=== PATIENT | female | born 1965 | race Caucasian/White ===

== ENCOUNTER 2016-09-29 13:14 | Inpatient (IN) | payer MEDICARE, MEDICAID ==
[~2016-09-29] VITALS: Ht 162.6 cm; Wt 75.5 kg
--- NOTE | ~2016-09-29 | HEMODYNAMI ---
PATIENT:BENJI SCHROEDER MEDICAL RECORD: [id number] : 69 LOCATION[id number] ADMISSION DATE: 09/29/16 Generatedon:09/30/201610:20 Patient name: BENJI SCHROEDER Patient #: [id number] SSN: [id number] : 1965 Date of study: 09/30/2016 Page: Of Hemodynamic Procedure Report Patient Data Patient Demographics Procedure consent was obtained First Name: BENJI Gender: Female Last Name: ALEXANDRE : 1965 [facility] Initial: MAIN Age: 51 year(s) Patient #: [id number] Race: SSN: [id number] Additional ID: [id number] Contact details Address: [address] [place] [address] rd State: [place] City: [facility] Zip code: [address] Past Medical History Allergies Allergen Reaction Date Comments Reported Bee/Wasp stings 09/30/2016 Admission Admission Data Admission Date: 09/29/2016 Admission Time: 13:14 Arrival Date: 09/29/2016 Arrival Time: 13:14 Admit Source: Other Insurance Payor: Medicare Room #: D.2115 Lab Results Lab Result Date: 09/30/2016 Lab Result Time: 0:00 Biochemistry Name Units Result Min Max BUN mg/dl 12 --(-*--)-- 7 18 Creatinine mg/dl 0.8 --(-*--)-- 0.6 1.3 CBC Name Units Result Min Max Hemoglobin g/dl 13.4 -*(----)-- 13.5 17.5 Procedure Procedure Types Cath Procedure Diagnostic Procedure LHC LHC w/Coronaries Procedure Description Procedure Date Procedure Date: 09/30/2016 Procedure Start Time: 10:09 Procedure End Time: 10:19 Procedure Staff Name Function Lloyd Adair MD Performing Physician Olivia Madrigal RT Scrub Christopher Lundberg RN Nurse Desire Reyes RT Monitor Indication Angina Procedure Data Cath Procedure Fluoroscopy Diagnostic fluoroscopy Total fluoroscopy Time: 1.1 time: 1.1 min min Diagnostic fluoroscopy Total fluoroscopy dose: 195 dose: 195 mGy mGy Contrast Material Contrast Material Type Amount (ml) Isovue 300 37 Entry Location Entry Primary Successful Side Size Upsize Upsize Entry Closure Succes sful Closure Location (Fr) 1 (Fr) 2 (Fr) Remarks Device Remarks Femoral Right 5 Fr Vascade artery Closure System Estimated blood loss: 5 ml Diagnostic catheters Device Type Used For End Catheter Placement Cordis 5Fr Pigtail LV Angiography Catheter (MP) Cordis 5Fr JL 4.0 Left Coronary Catheter (MP) Angiography Cordis 5Fr 3DRC Catheter Right Coronary (MP) Angiography Procedure Complications No complications Procedure Medications Medication Administration Route Dosage Oxygen NC 2 l/min Plavix P.O. 75 mg Heparin Flush Bag added to field 2 bags (1000units/500ml NS) 0.9% NaCl I.V. ml/hr Fentanyl I.V. 50 mcg Versed I.V. 1 mg Fentanyl I.V. 50 mcg Versed I.V. 1 mg Hemodynamics Rest HGB: 13.4 (g/dl) Heart Rate: 64 (bpm) Snapshots Pre Cath Intra NCS Post Cath Vital Signs Time Heart Resp SPO2 NIBP Rhythm Pain Sedation Rate (ipm) (%) (mmHg) Status Level (bpm) 9:57:22 52 19 91 100/71(84) NSR 0 (11) 10(A) , No pain 10:01:25 51 20 94 103/62(74) NSR 0 (11) 10(A) , No pain 10:05:31 49 19 94 97/62(76) NSR 0 (11) 10(A) , No pain 10:09:33 48 17 94 96/63(74) NSR 0 (11) 10(A) , No pain 10:13:34 55 16 95 92/62(77) NSR 0 (11) 9(A) , No pain 10:16:41 57 19 94 96/63(74) NSR 0 (11) 9(A) , No pain Medications Time Medication Route Dose Verified Delivered Reason Notes Ef fectiveness by by 9:57:54 Oxygen NC 2 Christopher White Per l/min Toño Lundberg RN physician RN 10:00:00 Plavix P.O. 75 mg Christopher Lundberg Lundberg RN antiplatelet RN therapy 10:00:12 Heparin Flush added 2 Christopher hWite used for Bag to bags Toño Lundberg RN procedure (1000units/500ml field RN NS) 10:00:41 0.9% NaCl I.V. ml/hr Christopher Christopher Per Toño Lundberg RN physician RN 10:06:51 Fentanyl I.V. 50 Christopher Christopher for sedation mcg Toño Lundberg RN RN 10:06:59 Versed I.V. 1 mg Christopher Christopher for sedation Toño Lundberg RN RN 10:09:49 Fentanyl I.V. 50 Christopher Christopher for sedation mcg Toño Lundberg RN RN 10:09:52 Versed I.V. 1 mg Christopher Christopher for sedation Toño Lundberg RN treatment coordinator Log Time Note 9:30:41 Christopher Lundberg RN sent for patient. Start room use. 9:42:41 Time tracking: Call back 9:42:45 Plan of Care:Hemodynamics will remain stable., Cardiac rhythm will remain stable., Comfort level will be maintained., Respiratory function will remain adequate., Patient/ family verbilizes understanding of procedure., Procedure tolerated without complication., Recovers from procedure without complications.. 9:44:13 Diagnostic Cath Status : Elective 9:44:22 Indication : Angina 9:44:42 Informed consent obtained and on chart 9:45:21 Arrival Date: 09/29/2016 1:14:00 PM 9:45:27 Admit Source: Other 9:45:29 Insurance Payor : Medicare 9:47:34 Lab Result : Hemoglobin 13.4 g/dl 9:47:34 Lab Result : Creatinine 0.8 mg/dl 9:47:34 Lab Result : BUN 12 mg/dl 9:48:04 Patient received from Med II to CCL 1 Alert and oriented. Tansferred to table in Supine position. 9:48:08 Warm blankets applied, and zuri hugger turned on for patient comfort. 9:48:08 Correct patient and procedure confirmed by team. 9:48:09 ECG and BP/O2 sat monitors applied to patient. 9:56:15 Vital chart was started 9:56:18 Rhythm: sinus rhythm 9:56:19 Full Disclosure recording started 9:57:00 H&P Date Dictated: 09/29/2016 Within 30 days and on chart.. 9:57:01 Pre-procedure instructions explained to patient. 9:57:02 Pre-op teaching completed and patient verbalized understanding. 9:57:03 Family unavailable. 9:57:19 Patient NPO since Midnight. 9:57:23 Patient allergic to Bee/Wasp stings 9:57:25 Is the patient allergic to Iodine/contrast media? No. 9:57:27 Is patient on blood thinner?Yes 9:57:29 ACC The patient was administered the following blood thiners within the last 24 hours: ACCPlavix 9:57:32 Patient diabetic? No. 9:57:54 Oxygen 2 l/min NC was given by Christopher Lundberg RN; Per physician; 9:58:04 Previous problem with sedation/anesthesia? No ? 9:58:04 Snore? Yes 9:58:05 Sleep apnea? No 9:58:06 Deviated septum? No 9:58:07 Opens mouth fully? Yes 9:58:08 Sticks out tongue? Yes 9:58:10 Airway obstruction? Yes COPD 9:58:14 Dentures? Yes Out 9:58:17 Pre procedure: right dorsailis pedis pulse 2+ Normal; easily identifiable; not easily obliterated 9:58:18 Modified Dalton's test Ulnar > 7 seconds. 9:58:20 Patient pain scale 0/10 ?. 9:58:27 IV patent on arrival in left hand with 0.9% NaCl at KVO. 9:58:32 Lab results completed and on chart. 9:58:35 Right groin area was prepped with chlora-prep and draped in sterile fashion 9:58:36 Alarms reviewed by R. N. 9:58:36 Sharps counted by scrub and verified by R.N. 9:58:42 Use device set Femoral Dx 9:58:43 Acist Syringe opened to sterile field. 9:58:43 Bag Decanter opened to sterile field. 9:58:43 Cardinal Cath Pack opened to sterile field. 9:58:44 Terumo 5Fr Riparius Sheath opened to sterile field. 9:58:44 St Liang 260cm J .035 wire opened to sterile field. 9:58:45 Acist Hand Control opened to sterile field. 9:58:45 Acist Manifold opened to sterile field. 9:58:46 Cordis Infinity 5Fr Multipack catheter opened to sterile field. 9:58:46 Tegaderm 4 x 4 opened to sterile field. 9:58:47 IV Extension Set opened to sterile field. 9:58:55 Baseline sample Acquired. 10:00:00 Plavix 75 mg P.O. was given by Christopher Lundberg RN; for antiplatelet therapy; 10:00:12 Heparin Flush Bag (1000units/500ml NS) 2 bags added to field was given by Christopher Lundberg RN; used for procedure; 10:00:41 0.9% NaCl ml/hr I.V. was given by Christopher Lundberg RN; Per physician; 10:01:17 Physician paged 10:05:06 Zero performed for pressure channel P1 10:06:23 Final Timeout: patient, procedure, and site verified with staff and physician. All members of the team are in agreement. 10:06:26 Right groin site verified by team. 10:06:30 Physical assessment completed. ASA score P 2 - A patient with mild systemic disease as per Lloyd Adair MD. 10:06:33 Sedation plan: IV Moderate Sedation Versed, Fentanyl 10:06:51 Fentanyl 50 mcg I.V. was given by Christopher Lundberg RN; for sedation; 10:06:59 Versed 1 mg I.V. was given by Christopher Lundberg RN; for sedation; 10:09:43 Procedure started. 10:09:46 Local anesthetic to right femoral artery with Lidocaine 2% by Lloyd Adair MD.INITIAL ACCESS ONLY 10:09:49 Fentanyl 50 mcg I.V. was given by Christopher Lundberg RN; for sedation; 10:09:52 Versed 1 mg I.V. was given by Christopher Lundberg RN; for sedation; 10:10:30 A 5 Fr sheath was inserted into the Right Femoral artery 10:10:44 A Cordis 5Fr Pigtail Catheter (MP) was advanced over the wire and used for LV Angiography. 10:11:21 LV gram done using ROMAN 10:11:26 Injector settings: Ml/sec: 5, Volume: 15, 10:11:34 EF : 55 % 10:11:36 Catheter removed. 10:11:45 A Cordis 5Fr JL 4.0 Catheter (MP) was advanced over the wire and used for Left Coronary Angiography. 10:12:37 Catheter removed. 10:12:56 A Cordis 5Fr 3DRC Catheter (MP) was advanced over the wire and used for Right Coronary Angiography. 10:13:29 Catheter removed. 10:13:35 Vascade 5Fr Closure Device opened to sterile field. 10:13:47 Sheath removed intact; hemostasis achieved with Vascade Closure System to the Right Femoral artery. 10:13:49 Procedure ended.(Physican Out) 10:13:58 Fluoroscopy time 01.10 minutes. 10:14:03 Fluoroscopy dose: 195 mGy 10:14:03 Flurop Dose total: 195 10:14:42 Contrast amount:Isovue 300 37ml. 10:14:43 Sharps counted by scrub and verified by R.N. 10:14:44 Insertion/operative site no bleeding no hematoma. 10:14:44 Insertion/operative site no bleeding no hematoma. 10:14:47 Post-op/insertion site Right Femoral artery dressed using a 4 x 4 and Tegaderm. 10:14:50 Post right femoral artery:stable, clean and dry 10:14:51 Post Procedure Pulses reassessed and unchanged 10:14:53 Post-procedure physical assessment completed. ASA score P 2 - A patient with mild systemic disease as per Lloyd Adair MD. 10:14:55 Post procedure rhythm: unchanged. 10:14:57 Estimated blood loss: 5 ml 10:14:58 Post procedure instruction explained to patient.Patient verbalizes understanding. 10:14:58 Patient needs reinforcement of post procedure teaching. 10:15:05 Procedure Complication : No complications 10:15:07 See physician's report for complete and final results. 10:16:33 Procedure and supply charges have been captured, reviewed, submitted and are correct. 10:19:39 Vital chart was stopped 10:19:42 Report given to PCU. 10:19:45 Patient transfered to PCU with Bed. 10:19:47 Procedure ended. 10:19:47 Full Disclosure recording stopped 10:19:52 End room use (Document Last) Device Usage Item Name Manufacture Quantity Catalog Number Hospital Part Current Minimal Lot# / Charge Number Stock Stock Serial# Code [facility] [id number] 535451 425165 769155 20 myJambi Inc Bag Microtek 1 438492 14995 251722 5 Decanter Medical Inc. Cardinal Cardinal 1 [id number] 533157 97335 545560 5 Cath Pack Health Terumo Terumo 1 [id number] 135565 784123 750923 [address] St Liang 1 216960 006557 974916 116001 30 260cm J .035 wire Acist Acist 1 83791 697056 046858 135131 5 Hand Medical Control Systems Inc Acist Acist 1 46694 767392 430140 548573 5 Manifold Medical Systems Inc Cordis Cardinal 1 [id number] 481409 85924 903655 30 Infinity Health 5Fr Multipack catheter Tegaderm 3M 1 [id number] 449390 299063 447869 5 4 x 4 IV Hospira 1 57799-08 493122 84736 446858 5 Extension Set Cordis Cardinal 1 525692 5 5Fr Health Pigtail Catheter (MP) Cordis Cardinal 1 [id number] 5 5Fr JL Health 4.0 Catheter (MP) Cordis Cardinal 1 852542 5 5Fr 3DRC Health Catheter (MP) Vascade Cardiva 1 [id number] 588109 90349 560074 10 5Fr Medical, Closure Inc. Device Signature Audit [place] Stage Time Signature Unsigned Intra-Procedure 09/30/2016 Desire 10:20:33 AM Counts RT(R) Signatures Monitor : Desire Signature : Counts RT Date : Time : [facility] [address] [place] [address]
[~2016-09-29 13:14] MED LIST: DETROL LA4 MG PO; MOBIC7.5 MG PO; NICODERM C1 PATCH .1 TD
[2016-09-29] MEDS ORDERED: VESICARE10 MG PO (13:51)
[2016-09-29] MEDS ORDERED: ALENDRONATE SOD70 MG PO (13:51)
[2016-09-29] MEDS ORDERED: CELEXA20 MG PO (13:55)
[2016-09-29] MEDS ORDERED: GLUCOSAMINE & C1 CAP PO (13:57)
[2016-09-29 14:10] VITALS: BP 125/87; Ht 162.6 cm; Wt 75.5 kg
[2016-09-29 15:40] LABS: BASOPHILS 0.2 % (0.0-2.0); EOSINOPHILS 0.7 % (0-7); HEMATOCRIT 41.7 % (36.0-48.0); HEMOGLOBIN 13.4 g/dL (12-16); IMMATURE GRANULOCYTES 0.2 % (0-5); LYMPHOCYTES 21.7 % (15-50); MCH 29.3 pg (26.0-34.0); MCHC 32.1 g/dL (31.0-37.0); MEAN PLATELET VOLUME 11.3 fL (7.4-10.4); MONOCYTES 16.4 % (2-11); NEUTROPHILS 60.8 % (40-80); PLATELET COUNT 177 10x3/uL (130-400); RBC 4.58 10x6/uL (4.00-5.40); RDW 12.8 % (11.5-14.5); WBC 5.5 10x3/uL (4.8-10.8)
[2016-09-29 15:49] LABS: CALC OSMOLALITY 282 mosm/kg (275-300); CARBON DIOXIDE 28.5 mmol/L (21.0-32.0); CHLORIDE - SERUM 105 mmol/L (98-107); CREATININE - SERUM 0.8 mg/dL (0.6-1.3); POTASSIUM - SERUM 3.6 mmol/L (3.5-5.1); SODIUM 141 mmol/L (136-145); UREA NITROGEN 13 mg/dL (7-18); eGFR NON AFRICAN AMERICAN 81 mL/min (90-120)
[2016-09-29 15:52] LABS: GLUCOSE 126 mg/dL (74-106)
[2016-09-29 16:00] VITALS: BP 110/75
[2016-09-29 16:13] LABS: CKMB 2.6 U/L (0.0-3.6); CREATINE KINASE 106 UL (21-215)
[2016-09-29 16:14] LABS: TROPONIN-I < 0.017 ng/mL (0.000-0.060)
--- NOTE | 2016-09-29 19:00 | NUR ---
RECEIVED REPORT AND ASSUMED PT CARE FROM DAY SHIFT NURSE @ THIS TIME.
[2016-09-29 21:00] VITALS: BP 101/70
[2016-09-29 22:21] LABS: CKMB 3.3 U/L (0.0-3.6); CREATINE KINASE 108 UL (21-215)
[2016-09-29 22:22] LABS: TROPONIN-I < 0.017 ng/mL (0.000-0.060)
[2016-09-30 00:42] VITALS: BP 106/73
[2016-09-30 02:21] LABS: BASOPHILS 0.6 % (0.0-2.0); EOSINOPHILS 2.4 % (0-7); HEMATOCRIT 40.8 % (36.0-48.0); HEMOGLOBIN 13.2 g/dL (12-16); LYMPHOCYTES 41.4 % (15-50); MCH 29.4 pg (26.0-34.0); MCHC 32.4 g/dL (31.0-37.0); MCV 90.9 fL (80.0-100.0); MEAN PLATELET VOLUME 11.6 fL (7.4-10.4); NEUTROPHILS 40.6 % (40-80); PLATELET COUNT 185 10x3/uL (130-400); RBC 4.49 10x6/uL (4.00-5.40); RDW 12.7 % (11.5-14.5); WBC 5.3 10x3/uL (4.8-10.8)
[2016-09-30 02:51] LABS: ALBUMIN 3.5 g/dL (3.4-5.0); ALKALINE PHOSPHATASE 36 U/L (46-116); ALT (SGPT) 13 U/L (10-68); BILIRUBIN - TOTAL 0.26 mg/dL (0.2-1.3); CALC OSMOLALITY 283 mosm/kg (275-300); CALCIUM 9.2 mg/dL (8.5-10.1); CARBON DIOXIDE 28.7 mmol/L (21.0-32.0); CHLORIDE - SERUM 107 mmol/L (98-107); CKMB 3.1 U/L (0.0-3.6); CREATINE KINASE 107 UL (21-215); CREATININE - SERUM 0.8 mg/dL (0.6-1.3); GLUCOSE 89 mg/dL (74-106); PROTEIN - SERUM 6.3 g/dL (6.4-8.2); SODIUM 143 mmol/L (136-145); UREA NITROGEN 12 mg/dL (7-18); eGFR NON AFRICAN AMERICAN 81 mL/min (90-120)
[2016-09-30 02:53] LABS: TROPONIN-I < 0.017 ng/mL (0.000-0.060)
[2016-09-30 07:18] VITALS: BP 108/73
[2016-09-30 08:03] VITALS: BP 103/61
--- NOTE | 2016-09-30 09:52 | NUR ---
PRE-OPS GIVEN. TO ROUTE SALES ASSOCIATE BY BED.
--- NOTE | 2016-09-30 10:38 | NUR ---
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 VS WNL. RIGHT GROIN STABLE WITHOUT BLEEDING OR HEMATOMA NOTED. WILL MONITOR.
--- NOTE | 2016-09-30 11:01 | NUR ---
IV RESTARTED TO RIGHT HAND WITH 22 GAUGE CATH X 1 STICK AND FLUSHED WITH NS. LINE IS PATENT.
--- NOTE | 2016-09-30 12:34 | NUR ---
BED REST UP. GROIN STABLE.
--- NOTE | 2016-09-30 13:14 | NUR ---
IV AND TELEMETRY DCD. DC PLANS GIVEN. UNDERSTANDING VOICED.
--- NOTE | 2016-09-30 13:25 | NUR ---
ESCORTED TO CAR BY W/C.
--- NOTE | 2016-10-06 11:11 | OP ---
PATIENT NAME: BENJI SCHROEDER MEDICAL RECORD: [id number] :69 LOCATION:D.M2 D.2115 ADMISSION DATE:09/29/16 SURGEON: GISSELLE CORCORAN MD DATE OF OPERATION: 09/30/2016 PROCEDURES: 1. Left heart catheterization. 2. Selective coronary angiography. 3. Left ventriculogram. PROCEDURE IN DETAIL: After informed consent was obtained and after detailed explanation of risks, benefits, as well as alternative therapies, the patient elected to proceed with angiogram and heart catheterization. The right femoral area was prepped and draped in normal sterile fashion. The right femoral artery was cannulated via modified Seldinger technique with placement of 5-Arabic sheath. All catheters exchanged through this sheath. FINDINGS: Left ventriculogram was performed in the standard 30-degree ROMAN view reveals good cardiac wall motion throughout all segments. Overall ejection fraction estimated at 60%. SELECTIVE CORONARY ANGIOGRAPHY: Left main, left anterior descending, left circumflex, right coronary artery are all smooth-walled vessels with no angiographic evidence of coronary artery disease. OVERALL IMPRESSION: 1. No angiographic evidence of coronary artery disease. 2. Normal left heart pressures. 3. Normal left ventricular systolic function. Chest pain is noncardiac in etiology. No further cardiac workup needs to be ascertained. TRANSINT:[id number] Voice Confirmation ID: [id number] DOCUMENT ID: [id number] GISSELLE CORCORAN MD at 1111 CC: EDURADO MCKEON DO [id number] DICTATION DATE: 09/30/16 1020 MANUFACTURING MANAGEMENT ASSOCIATE: 09/30/16 1031 DIS IN 09/30/16 [id number] [place] [address]
--- NOTE | 2016-10-06 11:11 | CN ---
PATIENT NAME:BENJI SCHROEDER MEDICAL RECORD: [id number] : [birth year] LOCATION:D. D.2115 ADMIT DATE: 09/29/16 ACCOUNT: [id number] CONSULTING PHYSICIAN: GISSELLE CORCORAN MD REFERRING PHYSICIAN: EDUARDO MCKEON DO DATE OF CONSULTATION: 09/29/2016 Cardiology Consultation DIAGNOSES: 1. Angina. 2. Abnormal ECG. 3. Family history of coronary artery disease. 4. Smoking history. HISTORY OF PRESENT ILLNESS: Mrs. Schroeder presents with 2 days of increasing chest pain, chest discomfort. At her primary care doctor's office, heart rate is in the 40s. She had ST-T abnormalities as well. Heart rates now in the 70s, her ST-T abnormalities have resolved. She has no previous cardiac history, no previous cardiac workup. Chest pain is quite a classical anginal symptomatology with a pressure across the anterior chest. Also, she has noted shortness of breath for the past 2 days. Laboratory values are pending. She is on no AV blocking medication. PHYSICAL EXAMINATION: GENERAL APPEARANCE: Well-nourished, well-developed, appears stated age. Level of distress, comfortable. PSYCHIATRIC: Mental status, alert, normal affect. Orientation, oriented to time, place and person. EYES: Lids and conjunctiva, noninjected. No discharge, no pallor. ENT: Lips, teeth, gums, normal dentition. Oropharynx, no cyanosis, no pallor. NECK: Carotid arteries, bilateral normal upstroke, no bruits, no thrills. JUGULAR VEINS: No jugular venous pressure or distention. CERVICAL LYMPH NODES: Nontender, nonenlarged. THYROID: Not enlarged. Nontender. No nodules. LUNGS: Respiratory effort, unlabored. CHEST: Normal curvature. No thoracic deformity. No chest wall tenderness. Percussion, resonant. Auscultation, clear. No wheezes, no rales, no rhonchi. CARDIOVASCULAR: Precordial exam, nondisplaced. No heaves or pericardial thrills. Rate and rhythm, regular. Heart sounds, normal S1, normal S2. No S3, no gallop, no rub. Systolic murmur, not heard. Diastolic murmur, not heard. EXTREMITIES: No cyanosis, no edema. Peripheral pulses, full and equal in all extremities, except as noted. No bruits appreciated. ABDOMEN: Soft, nondistended. Normal aorta. No bruit. Nontender. No masses. Liver, nontender, no hepatomegaly. Spleen, nontender, no splenomegaly. MUSCULOSKELETAL: No joint tenderness. No joint swelling. No erythema. NEUROLOGICAL: Normal gait, normal strength, normal tone. SKIN: Warm and dry. REVIEW OF SYSTEMS: The patient reports easy bruising but reports no swollen glands. The patient reports no fever, no night sweats, no significant weight gain, no significant weight loss. No significant exercise tolerance. The patient reports no dry eyes, no irritation, no vision change. Patient reports no difficulty hearing and no ear pain. Patient reports no frequent nose bleeds or nose and sinus problems. Patient reports on arm pain on exertion. No CONSULT REPORT [id number] ALEXANDREBENJI MAIN shortness of breath while lying down. No history of heart murmur. Patient reports no cough, no wheezing or coughing up blood. Patient reports no abdominal pain, no vomiting. Normal appetite. No diarrhea and not vomiting blood. No nausea and no constipation. Patient reports no incontinence. No difficulty urinating. No hematuria. No increased frequency. Patient reports no muscle aches. No weakness, no arthralgias, no back pain. No swelling of the extremities. Patient reports no abnormal mole, no jaundice, no rashes. Reports no loss of consciousness. No weakness and no numbness. No seizures, dizziness, or headaches. The patient reports no depression, no sleep disturbance, feeling safe in a relationship and no alcohol abuse. Patient reports on fatigue. Reports no runny nose or sinus pressure. No itching, no hives, and no frequent sneezing. OVERALL IMPRESSION: Chest pain compatible with angina along with abnormal ECG. There is high likelihood of hemodynamically significant coronary artery disease. We will proceed with coronary angiography. Further care depends upon findings of the angiography. TRANSINT:[id number] Voice Confirmation ID: [id number] DOCUMENT ID: [id number] GISSELLE CORCORAN MD at 1111 CC: [id number] DICTATION DATE: 09/29/16 1518 GRIPPER ATTACHER: 09/29/16 1541 DIS IN 09/30/16 [place] [address]
== END 2016-09-30 13:26 | disposition home or self-care (01) | DRG 287 ==
LOC: D.M2 13:14
PROVIDERS: Internal Medicine Interventional Cardiology; ADMIT Family Medicine
PROC: B2151ZZ Fluoroscopy of Left Heart using Low Osmolar Contrast (ICD-10-PCS; 2016-09-30)
PROC: 4A023N7 Measurement of Cardiac Sampling and Pressure, Left Heart, Percutaneous Approach (ICD-10-PCS; 2016-09-30)
PROC: B2111ZZ Fluoroscopy of Multiple Coronary Arteries using Low Osmolar Contrast (ICD-10-PCS; principal; 2016-09-30 08:00)
DX: R07.89 Other chest pain (principal); J44.0 Chronic obstructive pulmonary disease with (acute) lower respiratory infection; R94.31 Abnormal electrocardiogram [ECG] [EKG]; J44.9 Chronic obstructive pulmonary disease, unspecified; J20.9 Acute bronchitis, unspecified; Z82.49 Family history of ischemic heart disease and other diseases of the circulatory system; Z72.0 Tobacco use

== ENCOUNTER → 2017-07-10 18:07 | Outpatient (CLI) | payer MEDICARE, MEDICAID ==
[2016-09-29 14:10] VITALS: BMI 25.9
[~2017-07-10 18:07] MED LIST changes: +ABILIFY2 MG PO; +ALENDRONATE SOD70 MG PO; +ASPIRIN EC81 M1 PO; +BUSPAR10 MG PO; +CALCIUM 500 + D1 TAB PO; +CELEXA40 MG PO; +FISH OIL 1,0001 CA1 PO; +GLUCOSAMINE & C1 CAP PO; +MYRBETRIQ50 MG PO; +VESICARE10 MG PO; +VITAMIN D31000 UNIT PO
== END | disposition home or self-care (01) ==
LOC: D.MAMMO 14:45
DX: Z12.31 Encounter for screening mammogram for malignant neoplasm of breast (principal)

== ENCOUNTER 2017-10-16 05:30 | Day surgery (SDC) | payer MEDICARE, MEDICAID ==
[2017-10-15 13:50] LABS: HEMATOCRIT 44.2 % (36.0-48.0); HEMOGLOBIN 14.4 g/dL (12-16); MCHC 32.6 g/dL (31.0-37.0); MCV 92.1 fL (80.0-100.0); MEAN PLATELET VOLUME 10.5 fL (7.4-10.4); RBC 4.8 10x6/uL (4.00-5.40); RDW 12.9 % (11.5-14.5); WBC 10.5 10x3/uL (4.8-10.8)
[~2017-10-16] VITALS: Ht 162.6 cm; Wt 65.8 kg
--- NOTE | ~2017-10-16 | OP ---
PATIENT NAME: BENJI SCHROEDER MEDICAL RECORD: [id number] :69 LOCATION:[facility] ADMISSION DATE: SURGEON: RAINE MORROW MD DATE OF OPERATION: 10/16/2017 PREOPERATIVE DIAGNOSES: Disc herniation and foraminal stenosis, L4-L5, left. POSTOPERATIVE DIAGNOSES: Disc herniation and foraminal stenosis, L4-L5, left. PROCEDURE: Lumbar laminotomy, medial facetectomy, and foraminotomy with discectomy at L4-L5 left. DESCRIPTION AND TECHNIQUE: After induction of general endotracheal anesthesia, the patient was rolled prone on a Lopez frame. Lumbar spine was prepped and draped in usual sterile fashion. Fluoroscopic x-ray and spinal needle localized at the L4-L5 interspace on the left side. A stab incision was created with #11 blade and series of dilators was used to advance the METRx retractor to the L4-L5 interspace on the left side. The level was confirmed with fluoroscopic x-ray. A microscope and Midas Best drill were used to perform laminotomy, medial facetectomy, and foraminotomy at L4-L5 on the left. Following this, hypertrophied ligamentum flavum was removed with Cloward rongeurs within the foramen as well as the canal, this decompressed the dura well. There was a small free fragment disc herniation deep to the nerve root. This was removed without difficulty with pituitary rongeurs. Additional disc material was removed with pituitary rongeurs from the disc space. Meticulous hemostasis was maintained throughout the wound. Wound was irrigated with copious amounts of Ancef irrigant solution. The fascia was closed with 3-0 Vicryl suture, the subdermal layer was closed with 3-0 Vicryl suture. The skin was reapproximated with Steri-Strips and benzoin. A sterile dressing was applied to the wound. The patient was awakened in good condition and taken to recovery. All counts reported correct. Estimated blood loss was minimal. TRANSINT:[id number] Voice Confirmation ID: [id number] DOCUMENT ID: [id number] RAINE MORROW MD at 1317 CC: [id number] DICTATION DATE: 10/22/17917 RN TELEHEALTH: 10/22/17 1247 [facility] 10/16/17 [address] [address] [place] [address]
[2017-10-16 10:44] VITALS: BP 89/39; Ht 162.6 cm; Wt 65.8 kg
== END 2017-10-16 19:10 | disposition home or self-care (01) ==
LOC: D.OPS 05:30 → D.PAN 12:00 → D.OPS 12:30
PROVIDERS: Anesthesiology
DX: M51.26 Other intervertebral disc displacement, lumbar region (principal); M48.061 Spinal stenosis, lumbar region without neurogenic claudication; Z01.812 Encounter for preprocedural laboratory examination

== ENCOUNTER → 2018-09-23 09:51 | Outpatient (CLI) | payer MEDICARE, MEDICAID ==
[2017-10-16 10:44] VITALS: BMI 24.9
== END | disposition home or self-care (01) ==
LOC: D.HCCARDIO 09:51
DX: R07.9 Chest pain, unspecified (principal)

== ENCOUNTER 2021-03-11 13:45 | Outpatient (CLI) | payer MEDICARE, MEDICAID ==
[2020-10-23 14:09] VITALS: BMI 27.5
[~2021-03-11 13:45] MED LIST changes: +FLAGYL500 MG PO; +LEVAQUIN750 MG PO; +VITAMIN D325 MC1 PO
== END 2021-03-11 23:59 | disposition home or self-care (01) ==
LOC: D.MAMMO 13:45
PROVIDERS: ATTEND Family Medicine
DX: Z12.31 Encounter for screening mammogram for malignant neoplasm of breast (principal)